=== PATIENT | female | born 1990 | race African-American/Black ===

== ENCOUNTER 2023-06-12 10:24 | Emergency (ER) | payer MEDICAID ==
[~2023-06-12] VITALS: Ht 160 cm; Wt 54.0 kg
[2023-06-12 10:30] VITALS: O2SAT 99
[2023-06-12] MEDS: KETOROLAC 30MG/ML VIAL IM ONE (11:07)
[2023-06-12] MEDS: IBUPROFEN 600MG TABLET PO ONE (11:30)
[2023-06-12] MEDS ORDERED: IBUP-2029 MT (12:57)
[2023-06-12 13:19] VITALS: BP 111/82; PULSE 82; RESP 18; TEMP 98.4
== END 2023-06-12 13:26 | disposition home or self-care (01) ==
LOC: ER 11:35
DX: M79.605 Pain in left leg (principal); Z98.890 Other specified postprocedural states
CPT/HCPCS: 99284; 93970; 81025; J1885